=== PATIENT | male | born 1945 | race Caucasian/White ===

== ENCOUNTER 2016-07-10 08:04 | Emergency (ER) | payer MEDICARE ==
[~2016-07-10] VITALS: Ht 182.9 cm; Wt 93.0 kg
[2016-07-10 08:06] VITALS: BP 132/80; PULSE 52; RESP 18; O2SAT 97
[2016-07-10 08:21] VITALS: TEMP 97.6
[2016-07-10] MEDS ORDERED: ROSU10 PO (08:30)
[2016-07-10] MEDS ORDERED: AMLO5TAB2 PO (08:30)
[2016-07-10] MEDS ORDERED: LEVO50TA4 PO (08:30)
[2016-07-10] MEDS ORDERED: LISI40TA PO (08:30)
[2016-07-10] MEDS ORDERED: METF500T PO (08:30)
[2016-07-10] MEDS ORDERED: OXCA600T PO (08:30)
--- NOTE | 2016-07-10 08:40 | PD ---
HPI Chief Complaint: Abdominal Pain Time Seen by Provider: 08:26 Travel History International Travel<30 days: No Contact w/Intl Traveler<30days: No Traveled to known affect area: No History of Present Illness HPI This patient complains of abrupt onset of left lower quadrant pain. Duration is 1 hour and 15 minutes. Pain is severe. Feels like he has to urinate but is unable to go. No alleviating factors. No radiation down the legs. He has no back or flank pain. No nausea or vomiting or diarrhea. He ate a regular bowel movement this morning. Denies fever. PFSH Past Medical History Hx Anticoagulant Therapy: Yes Cardiovascular Problems: Yes (NE, ) Diabetes: Yes Patient Takes Glucophage: Yes Hypertension: Yes Myocardial Infarction: Yes Thyroid Disease: Yes Tetanus Vaccination: > 5 Years Influenza Vaccination: Yes Social History Alcohol Use: No Tobacco Use: No Substance Use: No Allergies-Medications (Allergen,Severity, Reaction): Coded Allergies: No Known Allergies (Unverified , 07/10/16) Reported Meds & Prescriptions Reported Meds & Active Scripts Active Reported Crestor (Rosuvastatin Calcium) 10 Mg Tab 10 Mg PO DAILY Oxcarbazepine 600 Mg Tab 600 Mg PO DIRECTED Lisinopril 40 Mg Tab 40 Mg PO DAILY Amlodipine (Amlodipine Besylate) 5 Mg Tab 5 Mg PO DAILY Levothyroxine (Levothyroxine Sodium) 50 Mcg Tab 50 Mcg PO DAILY Metformin (Metformin HCl) 500 Mg Tab 500 Mg PO DIRECTED With meals Review of Systems General / Constitutional: No: Fever Eyes: No: Visual changes HENT: No: Headaches Cardiovascular: No: Chest Pain or Discomfort Respiratory: No: Shortness of Breath Gastrointestinal: Positive: Abdominal Pain Genitourinary: No: Dysuria Musculoskeletal: No: Pain Skin: No Rash Neurologic: No: Weakness Psychiatric: No: Depression Endocrine: No: Polydipsia Hematologic/Lymphatic: No: Easy Bruising Physical Exam Narrative GENERAL: Well-nourished, well-developed patient with abdominal pain . SKIN: Warm and dry. HEAD: Atraumatic. Normocephalic. EYES: Pupils equal and round. No scleral icterus. No injection or drainage. ENT: No nasal bleeding or discharge. Mucous membranes pink and moist. NECK: Trachea midline. No JVD. CARDIOVASCULAR: Regular rate and rhythm. No murmur appreciated. RESPIRATORY: No accessory muscle use. Clear to auscultation. Breath sounds equal bilaterally. GASTROINTESTINAL: Abdomen soft, non-tender, nondistended. Hepatic and splenic margins not palpable. MUSCULOSKELETAL: No obvious deformities. No clubbing. No cyanosis. No edema. NEUROLOGICAL: Awake and alert. No obvious cranial nerve deficits. Motor grossly within normal limits. Normal speech. PSYCHIATRIC: Appropriate mood and affect; insight and judgment normal. Data Data Last Documented VS Vital Signs Date Time Temp Pulse Resp B/P Pulse Ox O2 Delivery O2 Flow Rate FiO2 07/10/16 08:21 97.6 07/10/16 08:06 52 18 132/80 97 Orders Complete Blood Count With Diff (07/10/16 08:31) Basic Metabolic Panel (Bmp) (07/10/16 08:31) Urinalysis - C+S If Indicated (07/10/16 08:31) Ct Abd/Pel W/O Iv Contrast (07/10/16 08:31) Ecg Monitoring (07/10/16 08:31) Iv Access Insert/Monitor (07/10/16 08:31) Ketorolac Inj (Toradol Inj) (07/10/16 08:45) Ondansetron Inj (Zofran Inj) (07/10/16 08:45) Sodium Chloride 0.9% Flush (Ns Flush) (07/10/16 08:45) Hydromorphone Pf Inj (Dilaudid Pf Inj) (07/10/16 08:45) Labs Laboratory Tests Test 07/10/16 08:40 White Blood Count 8.8 TH/MM3 Red Blood Count 4.91 MIL/MM3 Hemoglobin 14.6 GM/DL Hematocrit 43.2 % Mean Corpuscular Volume 87.9 FL Mean Corpuscular Hemoglobin 29.8 PG Mean Corpuscular Hemoglobin 33.9 % Concent Red Cell Distribution Width 11.8 % Platelet Count 296 TH/MM3 Mean Platelet Volume 7.3 FL Neutrophils (%) (Auto) 61.0 % Lymphocytes (%) (Auto) 25.3 % Monocytes (%) (Auto) 10.4 % Eosinophils (%) (Auto) 2.4 % Basophils (%) (Auto) 0.9 % Neutrophils # (Auto) 5.4 TH/MM3 Lymphocytes # (Auto) 2.2 TH/MM3 Monocytes # (Auto) 0.9 TH/MM3 Eosinophils # (Auto) 0.2 TH/MM3 Basophils # (Auto) 0.1 TH/MM3 CBC Comment DIFF FINAL Differential Comment Urine Collection Type CLEAN CATCH Urine Color YELLOW Urine Turbidity CLEAR Urine pH 5.5 Urine Specific [place] 1.027 Urine Protein NEG mg/dL Urine Glucose (UA) NEG mg/dL Urine Ketones NEG mg/dL Urine Occult Blood TRACE Urine Nitrite NEG Urine Bilirubin NEG Urine Leukocyte Esterase NEG Urine RBC 0-3 /hpf Urine Squamous Epithelial 0-5 /hpf Cells Urine Amorphous Sediment FEW Microscopic Urinalysis Comment CULT NOT INDICATED Urine Collection Time 0840 Sodium Level 144 MEQ/L Potassium Level 4.2 MEQ/L Chloride Level 111 MEQ/L Carbon Dioxide Level 22.2 MEQ/L Anion Gap 11 MEQ/L Blood Urea Nitrogen 25 MG/DL Creatinine 1.50 MG/DL Estimat Glomerular Filtration 46 ML/MIN Rate Random Glucose 136 MG/DL Calcium Level 8.5 MG/DL [facility] Medical Decision Making Medical Screen Exam Complete: Yes Emergency Medical Condition: Yes Medical Record Reviewed: Yes Differential Diagnosis Kidney stone, diverticulitis, AAA Narrative Course I have reviewed the patient's electronic medical record. Patient's presentation suggests kidney stone as the cause. IV placed I gave him IV Dilaudid and Zofran and Toradol CBC is normal Metabolic profile is normal Urinalysis is clean CT of abdomen and pelvis shows 4 mm ureteral stone on the left which would explain his pain On recheck he is much improved. I prescribed medicine for pain and nausea and one week of Flomax Recommending urology follow-up Diagnosis Primary Impression: Kidney stone on left side Additional Instructions: The patient was advised to follow up with urologist and return if they worsen. The patient was warned about potential sedation for the medications they will receive on prescription. Med/Other Pt SpecificInfo: Prescription(s) given Scripts Ondansetron (Zofran)4 Mg Tab4 Mg PO Q6HR PRN (NAUSEA OR VOMITING) #15 TAB Ref 0 Prov:Ravinder Caballero MD 07/10/16 Tamsulosin (Flomax)0.4 Mg Cap0.4 Mg PO HS #7 CAP Ref 0 Prov:Ravinder Caballero MD 07/10/16 Oxycodone-Acetaminophen (Percocet)7.5-325 mg Tab1 Tab PO Q6H PRN (PAIN) #25 TAB Ref 0 Prov:Ravinder Caballero MD 07/10/16 Disposition: 01 DISCHARGE HOME Condition: Stable Ravinder Caballero MD Jul 10, 2016 08:40
[2016-07-10] MEDS ORDERED: HYDROmorphone HCL PF 1 MG/ML VIAL IVS ONE (08:45)
[2016-07-10] MEDS ORDERED: SODIUM CHLORIDE 0.9% FLUSH 5 ML FLUSH IVF PRN (08:45)
[2016-07-10] MEDS ORDERED: ONDANSETRON HCL 4 MG/2 ML VIAL IVP ONE (08:45)
[2016-07-10] MEDS ORDERED: KETOROLAC TROMETHAMINE 30 MG/ML (IVP) VIAL IVP ONE (08:45)
[2016-07-10 08:49] LABS: AUTOMATED NEUTROPHIL # 5.4 TH/MM3 (1.8-7.7); BASOPHIL # 0.1 TH/MM3 (0-0.2); BASOPHIL % 0.9 % (0.0-2.0); EOSINOPHIL # 0.2 TH/MM3 (0-0.4); EOSINOPHIL % 2.4 % (0.0-4.0); HEMATOCRIT 43.2 % (39.0-51.0); HEMO FLAGS DIFF FINAL; LYMPH % 25.3 % (9.0-44.0); LYMPHOCYTE # 2.2 TH/MM3 (1.0-4.8); MEAN CELL VOLUME 87.9 FL (80.0-100.0); MEAN CORPUSCULAR HEMOGLOBIN 29.8 PG (27.0-34.0); MEAN CORPUSCULAR HGB CONC 33.9 % (32.0-36.0); MONO % 10.4 % (0.0-8.0); PLATELET COUNT 296 TH/MM3 (150-450); RED BLOOD COUNT 4.91 MIL/MM3 (4.50-5.90); RED CELL DISTRIBUTION WIDTH 11.8 % (11.6-17.2); WHITE BLOOD COUNT 8.8 TH/MM3 (4.0-11.0)
[2016-07-10 08:53] LABS: BLOOD, URINE TRACE (NEG); GLUCOSE,URINE NEG (NEG); KETONE, URINE NEG (NEG); NITRITE,URINE NEG (NEG); PH, URINE 5.5 (5.0-8.5)
[2016-07-10 08:58] LABS: METHOD OF COLLECTION CLEAN CATCH; URINE COLOR YELLOW (YELLW/STRAW)
[2016-07-10 08:59] LABS: COMMENT (UR) CULT NOT INDICATED; COMMENT2 (UR) MUCOUS PRESENT; CULTURE IF INDICATED CULT NOT INDICATED; POTASSIUM 4.2 MEQ/L (3.5-5.1); RBC, URINE 0-3 /hpf (0-3); SQUAMOUS EPITHELIAL CELL URINE 0-5 /hpf (0-5)
[2016-07-10 09:02] LABS: BICARBONATE 22.2 MEQ/L (21.0-32.0)
--- NOTE | 2016-07-10 09:46 | RADHPO ---
EXAM DATE/TIME: 07/10/2016 09:02 [place] COMPARISON: No previous studies available for comparison. INDICATIONS: Left lower quadrant pain since this morning. ORAL CONTRAST: No oral contrast ingested. RADIATION DOSE: 22.74 CTDIvol (mGy) MEDICAL HISTORY: Cardiovascular disease. Hypertension. Diabetes. SURGICAL HISTORY: None. ENCOUNTER: Initial ACUITY: 1 day PAIN SCALE: 6/10 LOCATION: Left lower quadrant TECHNIQUE: Volumetric scanning of the abdomen and pelvis was performed. Using automated exposure control and ad justment of the mA and/or kV according to patient size, radiation dose was kept as low as reasonably achievable to obtain optimal diagnostic quality images. FINDINGS: There is acute obstructive uropathy of the left distal ureter at the left ureterovesical junction sec ondary to a 4 mm calcified calculus resulting in mild ureteropelvocaliectasis on the left. Uncomplic ated colonic diverticulosis is noted. There is no acute diverticulitis. Evaluation of the solid org ans of the abdomen is limited by the lack of intravenous contrast. The prostate gland is mildly prom inent and contains central calcifications. Degenerative changes and scoliosis of the lumbar spine ar e noted. The abdominal aorta is calcified but is not aneurysmally dilated. The inferior vena cava i s normal. There is paraaortic, retroperitoneal or mesenteric lymphadenopathy. The visualized lung b ases demonstrate scattered fibrotic scarring. CONCLUSION: 1. Acute obstructive uropathy of the left distal ureter at the left ureterovesical junction secondar y to a 4 mm calcified calculus resulting in mild ureteropelvocaliectasis on the left. 2. Uncomplicated colonic diverticulosis. 3. Mildly prominent prostate gland with central calcifications. 4. Degenerative changes and scoliosis of the lumbar spine. Lee Hines MD on July 10, 2016 at 9:18 Board Certified Radiologist. This report was verified electronically.
[2016-07-10] MEDS ORDERED: TAMS5CAP PO (09:59)
[2016-07-10] MEDS ORDERED: PERC7.5T13 PO (09:59)
[2016-07-10] MEDS ORDERED: ZOFR4TAB PO (09:59)
[2016-07-10 10:03] VITALS: BP 131/85; PULSE 57; RESP 17; O2SAT 97
== END 2016-07-10 10:10 | disposition home or self-care (01) ==
LOC: PHED 08:04
DX: N20.0 Calculus of kidney (principal); N20.1 Calculus of ureter; I10 Essential (primary) hypertension; I25.2 Old myocardial infarction
CPT/HCPCS: 74176; 80048; 81001; 85025; 96374; 96375; 99284; J1170; J1885; J2405